=== PATIENT | female | born 1960 | race Caucasian/White ===

== ENCOUNTER 2018-07-20 18:32 | Emergency (ER) | payer OTHER ==
[2018-07-20 18:47] VITALS: BP 120/85; PULSE 88; TEMP 98.2; BMI 26.2
[2018-07-20] MEDS ORDERED: ACETAMINOPHEN 500 MG TABLET (FP) PO ONE (22:23)
[2018-07-20] MEDS ORDERED: METHOCARBAMOL 500 MG TABLET PO ONE (22:23)
[2018-07-20] MEDS ORDERED: ACETAMINOPHEN 500 MG TABLET (FP) ONE (22:24)
[2018-07-20] MEDS ORDERED: METHOCARBAMOL 500 MG TABLET ONE (22:26)
--- NOTE | 2018-07-20 22:26 | PDOC ---
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 Patient report slipped off the stepped stool and fell hitting her right ribs and shoulder on a heating radiator. Patient denies hitting head or LOC. Patient denies any other symptoms Timing/Duration: 1-3 hours Past History - Past Medical History Allergies/Adverse Reactions: Allergies Allergy/AdvReac Type Severity Reaction Status Date / Time No Known Allergies Allergy Verified 07/20/18 18:47 Home Medications: Ambulatory Orders Alendronate Sodium [Binosto] 35 mg PO DAILY 07/20/18 Aspirin [ASA -] 81 mg PO DAILY 07/20/18 Atorvastatin Ca [Lipitor] 40 mg PO HS 07/20/18 Cholecalciferol (Vitamin D3) [Vitamin D3 -] 1,000 unit PO DAILY 07/20/18 Methocarbamol [Robaxin -] 500 mg PO BID PRN #14 tablet 07/20/18 Methylprednisolone [Medrol Dose Anson] 4 mg PO ASDIR #21 tablet 07/20/18 Sitagliptin Phos/Metformin HCl [Janumet 50-1,000 mg Tablet] 1 each PO DAILY 09/02 COPD: No Diabetes: Yes Hypercholesterolemia: Yes - Surgical History Cholecystectomy: Yes - Suicide/Smoking/Psychosocial Hx Smoking History: Never smoked Review of Systems - Review of Systems Able to Perform ROS?: Yes Is the patient limited Jamaican proficient: No Constitutional: No: Weakness HEENTM: No: Blurred Vision, Double Vision Respiratory: No: Symptoms reported Cardiac (ROS): No: Symptoms Reported ABD/GI: No: Nausea, Vomiting Musculoskeletal: Yes: See HPI, Joint Pain (right shoulder), Muscle Pain (right upper ribs on lateral side. upper upper arms ) Integumentary: No: Bruising, Erythema Neurological: No: Headache, Numbness, Paresthesia, Tingling, Dizziness All Other Systems: Reviewed and Negative *Physical Exam - Vital Signs Last Vital Signs Temp Pulse Resp BP Pulse Ox 98.2 F 88 18 120/85 99 07/20/18 18:44 07/20/18 18:44 07/20/18 18:44 07/20/18 18:44 07/20/18 18:44 - Physical Exam General Appearance: Yes: Nourished, Appropriately Dressed. No: Apparent Distress HEENT: positive: GAMALIEL, Normal ENT Inspection Neck: positive: Supple. negative: Tender Respiratory/Chest: positive: Lungs Clear. negative: Respiratory Distress, Accessory Muscle Use Cardiovascular: positive: Regular Rhythm, Regular Rate Musculoskeletal: positive: Normal Inspection, Other (mild tenderness over lateral deltoid muscle of right shoulder . moderate tenderness to lateral side of right lower ribs over 8th-10th ribs) Extremity: positive: Normal Inspection, Normal Range of Motion (5/5 muscle strength to right UE) Integumentary: positive: Normal Color. negative: Ecchymosis Neurologic: positive: Fully Oriented, Alert, Normal Response, Motor Strength 5/5 Moderate Sedation - Procedure Monitoring Vital Signs: Procedure Monitoring Vital Signs Temperature 98.2 F 07/20/18 18:44 Pulse Rate 88 07/20/18 18:44 Respiratory Rate 18 07/20/18 18:44 Blood Pressure 120/85 07/20/18 18:44 O2 Sat by Pulse Oximetry (%) 99 07/20/18 18:44 ED Treatment Course - RADIOLOGY Radiology Studies Ordered: Category Date Time Status HUMERUS-RIGHT [RAD] Stat Radiology 07/20/18 21:24 Taken RIBS RIGHT SIDE [RAD] Stat Radiology 07/20/18 21:24 Taken SHOULDER-RIGHT [RAD] Stat Radiology 07/20/18 21:24 Taken Medical Decision Making - Medical Decision Making 07/20/18 22:33 Patient with h/o HTN and DM present for evaluation of right ribs pain and pain to right upper arm 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 Patient report slipped off the stepped stool and fell hitting her right ribs and shoulder on a heating radiator. Patient denies hitting head or LOC. Exam significant for moderate tenderness over right lower ribs with mild tenderness of lateral deltoid muscle of right shoulder. x-rays of right shoulder , humerus and ribs series shows no acute fracture or dislocations. Robaxin 500mg PO and Tylenol 1g PO given for pain due to patient cannot tolerate motrin which causing vomiting. Patient stable for discharge on medrol-anson and robaxin with orthopedics follow-up as needed. *DC/Admit/Observation/Transfer Diagnosis at time of Disposition: Right upper limb pain Contusion of rib on right side Qualifiers: Encounter type: initial encounter Qualified Code(s): S20.211A - Contusion of right front wall of thorax, initial encounter - Discharge Dispostion Disposition: HOME Condition at time of disposition: Stable Decision to Admit order: No - Prescriptions Prescriptions: Methocarbamol [Robaxin -] 500 mg PO BID PRN #14 tablet PRN Reason: rib pain Methylprednisolone [Medrol Dose Anson] 4 mg PO ASDIR #21 tablet - Referrals Referrals: Jaciel Canas MD [Primary Care Provider] - - Patient Instructions Printed Discharge Instructions: Contusion, DI for Rib Contusion Additional Instructions: X-rays shows no fracture or dislocation. Take medications as prescribed for pain. Apply heat therapy 2-3times/day for 5-10mins as needed for pain Print Language: LUXEMBOURGISH - Post Discharge Activity
== END 2018-07-20 22:32 | disposition home or self-care (01) ==
LOC: JERFT 18:32
DX: S20.211A Contusion of right front wall of thorax, initial encounter (principal); W07.XXXA Fall from chair, initial encounter; W01.190A Fall on same level from slipping, tripping and stumbling with subsequent striking against furniture, initial encounter; Y93.89 Activity, other specified; Y92.512 Supermarket, store or market as the place of occurrence of the external cause; Y99.0 Civilian activity done for income or pay; I10 Essential (primary) hypertension; E11.9 Type 2 diabetes mellitus without complications; Z79.84 Long term (current) use of oral hypoglycemic drugs
CPT/HCPCS: 71101-TC-RT-FY; 73030-TC-RT-FY; 73060-TC-RT-FY; 99281-25

== ENCOUNTER 2022-03-08 10:30 | Emergency (ER) | payer OTHER ==
[2022-03-08 10:42] VITALS: TEMP 97.9; BMI 26.2
[2022-03-08] MEDS ORDERED: METHOCARBAMOL 500 MG TABLET PO ONE (11:40)
[2022-03-08] MEDS ORDERED: LIDOCAINE 5% TOPICAL PATCH TP ONE (11:40)
[2022-03-08] MEDS ORDERED: KETOROLAC TROMETHAMINE 60 MG/2 ML VIAL IM ONE (11:40)
[2022-03-08] MEDS ORDERED: METHOCARBAMOL 500 MG TABLET ONE (12:47)
[2022-03-08] MEDS ORDERED: KETOROLAC TROMETHAMINE 30 MG/1 ML VIAL ONE (12:47)
[2022-03-08] MEDS ORDERED: LIDOCAINE 5% TOPICAL PATCH ONE (12:47)
[2022-03-08 14:49] VITALS: BP 141/84; PULSE 76; RESP 20
== END 2022-03-08 14:49 | disposition home or self-care (01) ==
LOC: JERFT 10:30
PROC: 3E0233Z Introduction of Anti-inflammatory into Muscle, Percutaneous Approach (ICD-10-PCS; principal; 2022-03-08)
DX: M25.511 Pain in right shoulder (principal); W19.XXXA Unspecified fall, initial encounter; Y92.9 Unspecified place or not applicable
CPT/HCPCS: 71046-TC-FY; 72070-TC-FY; 72100-TC-FY; 73030-TC-LT-FY; 73562-TC-LT-FY; 99284-25